=== PATIENT | male | born 1980 | race Caucasian/White ===

== ENCOUNTER 2020-11-29 14:42 | Emergency (ER) | payer MEDICAID ==
[~2020-11-29] VITALS: Ht 167.6 cm; Wt 110.0 kg
[2020-11-29] MEDS ORDERED: BO1 TP (20:26)
[2020-11-29 21:16] VITALS: BP 135/78
== END 2020-11-29 21:54 | disposition home or self-care (01) ==
LOC: EDBD 14:42 → ER 14:42
DX: R60.9 Edema, unspecified (principal); I87.8 Other specified disorders of veins; B86 Scabies; Z98.890 Other specified postprocedural states
CPT/HCPCS: 82962; 93923; 93970; 99285

== ENCOUNTER 2021-04-23 15:43 | Emergency (ER) | payer SELFPAY ==
[~2021-04-23] VITALS: Ht 165.1 cm; Wt 75.0 kg
[~2021-04-23 15:43] MED LIST: BO1 TP
[2021-04-23 15:46] VITALS: BP 120/85
[2021-04-23 16:45] LABS: CLARITY URINE CLEAR (CLEAR); COLOR URINE DARK YELLOW (YELLOW); KETONES URINE NEGATIVE (NEGATIVE); LEUKOCYTE ESTERASE URINE NEGATIVE (NEGATIVE); NITRITE URINE NEGATIVE (NEGATIVE); OCCULT BLOOD URINE NEGATIVE (NEGATIVE); PH URINE 7.5 (4.5-8.0); PROTEIN URINE NEGATIVE (NEGATIVE); SPECIFIC GRAVITY URINE 1.004 (1.005-1.030)
[2021-04-23 16:48] LABS: HEMATOCRIT. 29.5 % (42.0-52.0); HEMOGLOBIN. 10.4 g/dL (14.0-18.0); MEAN CORPUSCULAR HEMOGLOBIN 36.5 pg (28.0-32.0); MEAN CORPUSCULAR VOLUME 103.6 fL (80.0-94.0); PLATELET 145 x1000/uL (130-400); RED BLOOD CELL COUNT 2.85 mill/uL (4.7-6.1); RED CELL DISTRIBUTION WIDTH 17.9 % (11.6-14.6)
[2021-04-23 16:57] LABS: INR 1.6; PROTHROMBIN TIME 16.7 sec (9.6-11.0)
[2021-04-23 16:59] LABS: CHLORIDE 97 mEq/L (98-107)
[2021-04-23 17:02] LABS: ETHANOL BLOOD 244 mg/dL
[2021-04-23 17:05] LABS: *BARBITURATES SCREEN URINE NEGATIVE (NEGATIVE); *BENZODIAZEPINES SCREEN URINE NEGATIVE (NEGATIVE)
[2021-04-23 17:06] LABS: *AMPHETAMINES SCREEN URINE NEGATIVE (NEGATIVE); *COCAINE SCREEN URINE NEGATIVE (NEGATIVE); CANNABINOID URINE SCREEN NEGATIVE (NEGATIVE); METHADONE URINE SCREEN NEGATIVE (NEGATIVE); OPIATES URINE SCREEN NEGATIVE (NEGATIVE); PHENCYCLIDINE URINE SCREEN NEGATIVE (NEGATIVE)
[2021-04-23 17:08] LABS: PLATELET ESTIMATE NORMAL
[2021-04-23] MEDS ORDERED: POTASSIUM CHLORIDE 20MEQ TABLET SR PO ONE (17:45)
[2021-04-23] MEDS ORDERED: NALOXONE HCL 0.4MG/ML VIAL IV PRN (20:15)
[2021-04-23] MEDS ORDERED: ONDANSETRON HCL 4MG/2ML INJ IV PRN (20:15)
[2021-04-23] MEDS ORDERED: DOCUSATE SODIUM 100MG CAPSULE PO PRN (20:15)
[2021-04-23] MEDS ORDERED: CLONIDINE 0.1MG TABLET PO PRN (20:15)
[2021-04-23] MEDS ORDERED: PIPERACILLIN/TAZ 3.375G PREMIX 50 ML IV NR (20:15)
[2021-04-23] MEDS ORDERED: ACETAMINOPHEN 325MG TABLET PO PRN (20:15)
[2021-04-23] MEDS ORDERED: OXYCODONE HCL 5MG TABLET PO PRN (20:15)
[2021-04-23] MEDS ORDERED: MAGNESIUM GLUCONATE 500MG TABLET PO SCH (20:30)
[2021-04-24] MEDS ORDERED: PIPERACILLIN/TAZ 3.375G PREMIX 50 ML IV SCH (06:00)
== END 2021-04-23 20:00 | disposition left against medical advice (07) ==
LOC: ER 15:43 → CANBEDREQ 04-24 16:11
DX: K70.10 Alcoholic hepatitis without ascites (principal); K81.0 Acute cholecystitis; E87.6 Hypokalemia; F10.10 Alcohol abuse, uncomplicated; Y90.8 Blood alcohol level of 240 mg/100 ml or more
CPT/HCPCS: 36415; 74176; 76705; 80053; 80305; 80320; 81003; 83690; 83735; 85025; 85610; 99284; Z7610; G0480